=== PATIENT | female | born 2005 | race Caucasian/White ===

== ENCOUNTER 2024-11-20 22:11 | Emergency (ER) | payer BC, SELFPAY ==
--- OUTSIDE RECORDS SUMMARY | 2024-11-20 22:13 | XMS_ITS | Clinical Summary ---
Author Organization [facility] Address [address] [place] [address] Care Team Providers Care Youth Associate Name Role Phone Unavailable Primary Care Provider Unavailabl e Social History Tobacco Use Types Packs/Day Years Used Date Smoking Tobacco: Never Assessed Sex and Gender Information Value Date Recorded Sex Assigned at Not on file Gender Identity Not on file Sexual Orientation Not on file Plan of Treatment Health Maintenance Due Date Last Done Comments Hepatitis C Screening 2004 G/C Screening 2019 HIV Screening 2019 HPV Vaccines (1 - 3-dose series) 2019 Depression Screening 2022 Hepatitis B Vaccine (1 of 3 - 19+ 3-dose series) 2023 TDAP/DTaP/TD Vaccines (1 - Tdap) 2023 COVID-19 Vaccine (1 - 2023-2 5 season) 2024 Influenza Series (#1) 2024 Pneumococcal Vaccine 0-64 years Aged Out No longer eligible based on patient's age to complete this topic
[2024-11-20 22:23] VITALS: BP 118/95; PULSE 77; RESP 16; TEMP 36.4; O2SAT 98; BMI 22.5
[2024-11-20 23:05] LABS: Basophils Percent Auto 0.3 % (0.0-3.0); Eosinophils Percent Auto 1.2 % (0.0-7.0); Hematocrit 40.8 % (33.0-51.0); Hemoglobin* 13.2 gm/dL (12.0-16.0); Immature Granulocytes Pct Auto 0.1 %; Lymphocytes Percent Auto 15.6 % (20-44); Mean Corpuscular HGB Conc 32 gm/dL (32-36); Mean Corpuscular Hemoglobin 28 pg (26-34); Mean Corpuscular Volume 87 fL (80-100); Monocytes Percent Auto 6.4 % (0.0-11.0); Neutrophils Percent Auto 76.4 % (42.0-72.0); Platelet Count* 371 K/uL (140-440); RDW Coefficient of Variation % 13.3 % (11.5-15.5); Red Blood Count 4.67 m/uL (4.00-5.20); White Blood Count* 15.49 K/uL (4.50-11.00)
[2024-11-20 23:08] LABS: Slide Review Reflex No
[2024-11-20 23:12] LABS: Appearance Urine Cloudy (Clear); Bilirubin Urine Negative (Negative); Blood Urine Trace-intact (Negative); Color Urine Yellow (Yellow); Glucose Urine Negative (Negative); Ketones Urine Negative (Negative); Leukocyte Esterase Urine Negative (Negative); Nitrite Urine Negative (Negative); Protein Urine Negative (Negative); pH Urine 7.5 (5.0-8.5)
[2024-11-20 23:19] LABS: Albumin* 4.5 g/dL (3.3-5.0)
[2024-11-20 23:20] LABS: Chloride* 101 mmol/L (96-114); Potassium* 4.1 mmol/L (3.6-5.1); Sodium* 138 mmol/L (135-149)
[2024-11-20 23:22] LABS: Alkaline Phosphatase* 51 U/L (40-150); Aspartate Amino Transferase* 19 U/L (12-35); Bilirubin Direct* 0.2 mg/dL (0.0-0.5); Bilirubin Total* 0.4 mg/dL (0.1-1.5); Lipase* 125 U/L (23-300); Total Protein* 7.8 g/dL (6.0-8.3)
[2024-11-20 23:23] LABS: Alanine Aminotransferase* 17 U/L (4-35); Amylase* 104 U/L (18-89); Anion Gap 7 mEq/L (7-15); Blood Urea Nitrogen* 16 mg/dL (5-24); Carbon Dioxide* 30 mmol/L (20-32); Creatinine* 0.7 mg/dL (0.5-1.5); Est. Creatinine Clearance* 115.36; Estimated Glomerular Filt Rate 127 ml/min; Glucose* 98 mg/dL (60-115)
[2024-11-20 23:24] LABS: Calcium* 9.9 mg/dL (8.4-10.6)
--- OUTSIDE RECORDS SUMMARY | 2024-11-20 23:27 | XMS_ITS | Clinical Summary ---
Author Organization [facility] Address [address] [place] [address] Care Team Providers Care Dimension Quarry Supervisor Name Role Phone Unavailable Primary Care Provider [...]
[2024-11-20 23:29] LABS: Amorphous Sediment Urine Many; Bacteria Urine Few; Mucus Urine Few; RBC Urine 0-2 (0-2); Squamous Epithelial Cell Urine Few (None-Few); WBC Urine 0-2 (0-5)
[2024-11-20 23:30] LABS: Ur HCG Qualitative* Negative (Negative)
[2024-11-20] MEDS: OMEPRAZOLE 20 MG CAPSULE DR 40 MG PO (23:50)
--- NOTE | 2024-11-21 02:06 | ED_ITS ---
HPI - Abdominal Pain General Date Seen: 11/21/24 Chief Complaint: Abdominal Pain Stated Complaint: Abdominal pain Time Seen by Provider: 11/20/24 22:23 Source: patient Mode of arrival: ambulatory Limitations: no limitations History of Present Illness HPI narrative: This pleasant 19-year-old female presents here from [facility] with a history of epigastric pain, this lasted approximately 2 hours after she ate tonight. She currently has no pain at all. She has had episodes of pain like this since she was 15 actually a period of a few years were she did have anything at all. She fell to come out on slightly in July of this year started taking a proton pump inhibitor, and then actually get worse, but she went off the proton pump inhibitor and now she feels it has come back. Over the past 2 weeks whenever she eats she gets pain in her abdominal region. In the past has radiate up to her neck but I did do that today. Today was so bad that she laid on the floor. She has never vomited with this but it feels like she may. Pain does not go to her back or radiate anywhere. She denies a fevers chills. It always goes away. She has tried to go to the bathroom and notices that this is not affected also. She has never kept a log of what she eats. She has tried some other medication as prescribed by GI in [place]. In the past she upper went upper endoscopy but they did find anything she says. [place] she called her mother, who recommended that she comes in as they were worried about pancreatitis. Does not drink alcohol does do drugs, is a computer science major. elicited complaint: abdominal pain Pertinent past history: other Onset (ago): hour(s) Pain Consistency: now resolved Location: epigastric Severity: moderate Quality: stabbing Radiation: none Migration to: no migration Exacerbating factors: eating Relieving factors: nothing Context: history of similar episodes Associated symptoms: nausea Related Data Date of last menstrual period: 11/09/24 Patient : No Previous Rx's ?Medication ?Instructions ?Recorded esomeprazole magnesium 40 mg 40 mg PO DAILY #30 caps 11/20/24 capsule,delayed release (Nexium) Allergies Allergy/AdvReac Type Severity Reaction Status Date / Time No Known Drug Allergies Allergy Verified 11/20/24 22:23 Review of Systems Status of ROS Reports: 10 or more systems reviewed and unremarkable except as noted in History and below Exam Narrative: Exam Narrative: On examination in room 3 she is in no apparent distress her pupils are equal round reactive to light there is no scleral icterus redness her TMs are normal oropharynx is normal, her neck is supple full range of motion is elicited, cranial nerves 3-12 are normal, chest is good air entry bilateral with no wheezing crackles noted heart sounds are normal, with no clicks murmurs or gallops, her abdomen is scaphoid, she has no reproducible pain on palpation of her abdomen. There is no organomegaly her bowel sounds are normal, no CVA tenderness, skin reveals no petechiae rashes she moves all extremities independently and well, with no evidence of any swelling edema or other abnormality. Point of care ultrasound is done with the primary indication of epigastric discomfort, I can see a contracted gallbladder, and normal right kidney with no hydronephrosis. I do not see evidence of any other abnormality, no shadowing to suggest stones, and no positive ultrasound graphic Remy's Const: Vital Signs, click to edit/add: Vital Signs - 24 hr 11/20/24 22:23 Temperature 97.5 F L Pulse Rate [Pulse Oximeter] 77 Respiratory Rate 16 Blood Pressure [Ri t Upper Arm] 118/95 H Pulse Oximetry 98 Oxygen Delivery Me thod Room Air Documenting provider has reviewed patient's vital signs: yes Common normals: no apparent distress and oriented x3 Neuro: Common normals: oriented x3 Course Vital Signs Vital signs: Initial Vital Signs Temperature 97.5 F L 11/20/24 22:23 Temperature Source Temporal Artery Scan 11/20/24 22:23 Pulse Rate 77 11/20/24 22:23 Respiratory Rate 16 11/20/24 22:23 Blood Pressure 118/95 H 11/20/24 22:23 Blood Pressure Mean 102 11/20/24 22:23 Blood Pressure Position Sitting 11/20/24 22:23 Pulse Oximetry 98 11/20/24 22:23 Oxygen Delivery Method Room Air 11/20/24 22:23 Vital Signs Temperature 97.5 F L 11/20/24 22:23 Pulse Rate 77 11/20/24 22:23 Respiratory Rate 16 11/20/24 22:23 Blood Pressure 118/95 H 11/20/24 22:23 Pulse Oximetry 98 11/20/24 22:23 Oxygen Delivery Method Room Air 11/20/24 22:23 Temperature 97.5 F L 11/20/24 22:23 Pulse Rate 77 11/20/24 22:23 Respiratory Rate 16 11/20/24 22:23 Blood Pressure 118/95 H 11/20/24 22:23 Pulse Oximetry 98 11/20/24 22:23 Oxygen Delivery Method Room Air 11/20/24 22:23 Medications Administered Medications: Discontinued Medications Generic Name Dose Route Start Last Admin Trade Name Iván PRN Reason Stop Dose Admin Omeprazole 40 mg 11/20/24 23:38 11/20/24 23:50 [address] PO 11/20/24 23:39 40 mg ONCE ONE Administration MDM - Abdominal Pain MDM Narrative Medical decision making narrative: During the evaluation of this patient I considered multiple differential diagnosis including life-threatening differentials which are appendicitis, aortic aneurysm, mesenteric ischemia, bowel perforation, ectopic , volvulus and bowel obstruction, other differential diagnosis include but are not limited to inflammatory bowel disease, cholecystitis, pancreatitis, hepatitis, gastritis, GERD, diverticulitis, peptic ulcer disease, pyelonephritis/UTI, renal colic/stone, pelvic inflammatory disease, cervicitis, endometritis, intrauterine , dysfunctional uterine bleeding, ovarian cyst/torsion, spontaneous as well as other etiologies I discussed with her that all her laboratory tests with the exception of the white count being slightly elevated are normal, this may be reactive, her amylase was slightly elevated but is really a nonspecific test. Urinalysis and urine hCG were normal. I did give her a dose of Protonix here, and gave her prescription for her Nexium. I would suggest follow-up with surgery here or back in [place], I wonder about reflux, verses irritable bowel, verses biliary dyskinesia as a cause of her pain. Our surgeons here excellent and can help her with this ,of course if her pain worsens and I would suggest coming in here for further assessment. Lab Data Attestation: I reviewed the patient's lab results. Labs: Lab Results 11/20/24 11/20/24 Range/Units 22:55 23:03 WBC 15.49 H (4.50-11.00) K/uL RBC 4.67 (4.00-5.20) m/uL Hgb 13.2 (12.0-16.0) gm/dL Hct 40.8 (33.0-51.0) % MCV 87 (80-100) fL MCH 28 (26-34) pg MCHC 32 (32-36) gm/dL RDW Coeff of Hailey 13.3 (11.5-15.5) % Plt Count 371 (140-440) K/uL Neut % (Auto) 76.4 H (42.0-72.0) % Lymph % (Auto) 15.6 L (20-44) % Borden % (Auto) 6.4 (0.0-11.0) % Eos % (Auto) 1.2 (0.0-7.0) % Baso % (Auto) 0.3 (0.0-3.0) % Neut # (Auto) 11.80 H (1.7-7.0) K/uL Lymph # (Auto) 2.40 (0.90-2.90) K/uL Borden # (Auto) 1.00 H (0.00-0.90) K/UL Eos # (Auto) 0.20 (0.00-0.50) K/uL Baso # (Auto) 0.00 (0.00-0.30) K/uL Abs Immat Gran (auto) 0.00 (0.00-0.30) K/uL Imm/Tot Granulo (auto) 0.1 % Sodium 138 (135-149) mmol/L Potassium 4.1 (3.6-5.1) mmol/L Chloride 101 (96-114) mmol/L Carbon Dioxide 30 (20-32) mmol/L Anion Gap 7 (7-15) mEq/L BUN 16 (5-24) mg/dL Creatinine 0.7 (0.5-1.5) mg/dL Estimated Creat Clear 115.36 Estimated GFR 127 ml/min Glucose 98 (60-115) mg/dL Calcium 9.9 (8.4-10.6) mg/dL Total Bilirubin 0.4 (0.1-1.5) mg/dL Direct Bilirubin 0.2 (0.0-0.5) mg/dL AST 19 (12-35) U/L ALT 17 (4-35) U/L Alkaline Phosphatase 51 (40-150) U/L Total Protein 7.8 (6.0-8.3) g/dL Albumin 4.5 (3.3-5.0) g/dL Amylase 104 H (18-89) U/L Lipase 125 (23-300) U/L Urine Color Yellow (Yellow) Urine Appearance Cloudy A (Clear) Urine pH 7.5 (5.0-8.5) Ur Specific Luke 1.020 (1.000-1.030) Urine Protein Negative (Negative) Urine Glucose (UA) Negative (Negative) Urine Ketones Negative (Negative) Urine Blood Trace-intact A (Negative) Urine Nitrite Negative (Negative) Urine Bilirubin Negative (Negative) Urine Urobilinogen 1.0 (0.2-1.0) Ur Leukocyte Esterase Negative (Negative) Urine RBC 0-2 (0-2) Urine WBC 0-2 (0-5) Ur Squamous Epith Cells Few (None-Few) Amorphous Sediment Many A (None) Urine Bacteria Few A (None) Urine Mucus Few A (None) Urine HCG, Qual Negative (Negative) Discharge Plan Discharge Clinical Impression: Abdominal pain, Acid reflux disease Patient Disposition: Home, Self-Care Condition: Stable Instructions: GERD (Gastroesophageal Reflux Disease) (DC), Abdominal Pain (ED), Upper Endoscopy (DC) Additional Instructions: Home, rest, I do recommend that you follow-up, with our general surgery team here, they can help you figure out further treatment for this, I would recommend we start you on the proton pump inhibitors which who taking before. This is consistent with acid reflux disease, gallbladder dysfunction is also a possibility in there is further testing that you can get through this surgeons that can help with this. No evidence of elevated lipase tonight, to suggest that this is pancreatitis. I would keep a food diary, this is also very helpful looking back. Activity Level: Light activity Discharge Diet: Regular Prescriptions: New esomeprazole magnesium [Nexium] 40 mg capsule,delayed release(DR/EC) 40 mg PO DAILY Qty: 30 2RF Follow Up/Referrals: Emiliana Lopez MD [Staff Physician] - Aristides Longoria MD [Staff Physician] - Provider,Not a Local [Primary Care Provider] - Stand Alone Forms: [employer] Info Instructions
== END 2024-11-20 23:53 | disposition home or self-care (01) ==
PROVIDERS: Emergency Provider Family Medicine
DX: R10.9 Unspecified abdominal pain (principal); K21.9 Gastro-esophageal reflux disease without esophagitis
CPT/HCPCS: 36415; 76705; 80048; 80076; 81001; 81025; 82150; 83690; 85025; 87086; 99284; A9270

== ENCOUNTER 2024-12-14 14:44 | Outpatient (CLI) | payer BC, SELFPAY | END 2024-12-14 14:45 | disposition home or self-care (01) | LOC: US 14:45 | PROVIDERS: Visit Provider Surgery | DX: R10.9 Unspecified abdominal pain (principal) | CPT/HCPCS: 76705 ==

== ENCOUNTER 2024-12-27 10:14 | Outpatient (CLI) | payer BC, SELFPAY ==
--- NOTE | 2024-12-27 10:30 | CRLHL7_ITS ---
For Patients: As a result of the Century Cures Act, medical imaging exams and procedure reports are released immediately into your electronic medical record. You may view this report before your referring provider. If you have questions, please contact your health care provider. INDICATION: 19-year-old woman with concern for biliary dyskinesia TECHNIQUE: 7.0 mCi Tc 99m Mebrofenin were administered intravenously and serial static images were obtained over the anterior abdomen over 60 minutes, demonstrating radiotracer uptake within the gallbladder and demonstrating tracer exiting into the small bowel. Subsequently, 1.27 micrograms cholecystokinin was administered intravenously and the anterior abdomen was serially imaged with static views for another 30 minutes. COMPARISON: Abdominal ultrasound 12/14/2024. FINDINGS: There is normal radionuclide activity in the liver, common bile duct, gallbladder and small bowel. There is no evidence for cystic or common duct obstruction or intrinsic liver disease. After administration of cholecystokinin, tracer is demonstrated exiting the gallbladder into the common bile duct and small bowel. The gallbladder ejection fraction measures 79%. Normal range for GB EF: Equal to or greater than 35%. IMPRESSION: 1. Normal hepatobiliary scan. 2. Gallbladder ejection fraction measures 79%, within normal limits. Dictated by Wes Lindsay MD @ 12/27/2024 3:44:53 PM (Electronically Signed)
== END 2024-12-27 10:15 | disposition home or self-care (01) ==
LOC: NM 10:15
PROVIDERS: Visit Provider Surgery
DX: R10.9 Unspecified abdominal pain (principal)
CPT/HCPCS: 78227; A9537; J2805